=== PATIENT | male | born 1995 | race Caucasian/White ===

== ENCOUNTER 2020-05-23 10:29 | Observation (INO) ==
[2020-05-23 11:03] VITALS: BMI 21.7
[2020-05-23] MEDS ORDERED: NS 1000 ML 1,000 ML IV ONE ×2 (11:05→12:48)
[2020-05-23] MEDS ORDERED: HumuLIN R SUBCUT ONE (11:07)
[2020-05-23] MEDS ORDERED: ZOFRAN INJ 4 MG VIAL IVP ONE (11:07)
[2020-05-23] MEDS ORDERED: HumuLIN R ONE ×2 (11:08→11:09)
[2020-05-23] MEDS ORDERED: NS 1000 ML 1,000 ML ONE ×2 (11:08→12:46)
[2020-05-23] MEDS ORDERED: ZOFRAN INJ 4 MG VIAL ONE (11:08)
[2020-05-23] MEDS ORDERED: HumuLIN R IV ONE (11:08)
[2020-05-23 11:16] LABS: BASOPHILS % (AUTO) 0.2 % (0.2-1.0); EOSINOPHILS # (AUTO) 0.1 x10^3/uL (0.0-0.2); HEMATOCRIT 49.6 % (42.0-54.0); HEMOGLOBIN 16.4 g/dL (13.5-18.0); LYMPHOCYTES # (AUTO) 0.4 X10^3/uL (1.3-2.9); MEAN CORPUSCULAR HEMOGLOBIN 31.4 pg (27.0-34.0); MEAN CORPUSCULAR VOLUME 95.1 fL (80.0-100.0); MONOCYTES % (AUTO) 6.7 % (0.0-13.0); NEUTROPHILS # (AUTO) 12.8 x10^3/uL (2.2-4.8); NEUTROPHILS % (AUTO) 89.1 % (42.0-75.0); PLATELET COUNT 363 X10^3/uL (150.0-450.0); RED BLOOD COUNT 5.22 X10^6/uL (4.7-6.0); RED CELL DISTRIBUTION WIDTH 13.2 % (11.6-16.5); WHITE BLOOD COUNT 14.4 X10^3/uL (3.6-10.0)
[2020-05-23 11:24] LABS: ALANINE AMINOTRANSFERASE 112 Units/L (12-78); ALBUMIN 3.6 g/dL (3.4-5.0); ALKALINE PHOSPHATASE 120 Units/L (46-116); ASPARTATE AMINO TRANSFERASE 34 Units/L (15-37); BLOOD UREA NITROGEN 18 mg/dL (7-18); CALCIUM 8.4 mg/dL (8.5-10.1); CARBON DIOXIDE 17.3 mmol/L (21-32); CHLORIDE 99 mmol/L (98-107); COR NA(FOR HYPERGLY) 145 mmol/L (136-145); SERUM ACETONE SMALL (NEGATIVE); SODIUM 138 mmol/L (136-145); TOTAL PROTEIN 7.3 g/dL (6.4-8.2); eGFR NON BLACK RACES > 60 (>60)
[2020-05-23 12:22] LABS: BILIRUBIN,URINE NEGATIVE (NEGATIVE); BLOOD/HEMOGLOBIN,URINE NEGATIVE (NEGATIVE); GLUCOSE, URINE 4+ (NEGATIVE); KETONES,URINE 4+ (NEGATIVE); LEUKOCYTE ESTERASE ,URINE NEGATIVE (NEGATIVE); NITRITES,URINE NEGATIVE (NEGATIVE); PROTEIN,URINE NEGATIVE (NEGATIVE); UROBILINOGEN,URINE NORMAL (NORMAL)
[2020-05-23 12:26] LABS: APPEARANCE,URINE CLEAR (CLEAR); COLOR,URINE YELLOW (YELLOW)
--- NOTE | 2020-05-23 13:01 | RAD ---
HISTORYNausea and vomitingSTUDYAP chest portableCOMPARISONNoneFINDINGSNormal appearance of heart, lungs, mediastinum and pleural spaces.IMPRESSIONNormal AP chest.Electronically signed by: MARGOT TEJEDA (May 23, 2020 12:59:08)
--- NOTE | 2020-05-23 13:04 | DR.HYPOGLY ---
HPI Time Seen Time Seen by Provider: 05/23/20 12:41 PCP Primary Care Physician: PCP [place] HPI Comment HPI Comment: According to pt he was was well before 6 days. started with cold like symptoms with body ache decreased appetite .has been checking his blood sugar .running mostly in lower 200.however this morning experienced blood sugar over 300 and increased urination .did give himself additional insulin did not help ,hence the visit .Hx of DM type1 since age 11 at least Complaint Chief Complaint Doctors Comments: elevated blood sugar Chief Complaint:: PT C/O NAUSEA AND VOMITING SINCE 4AM ASSOCIATED WITH GENERALIZED MILD ABDOMINAL PAIN. PT IS TYPE 1 DIABETIC AND STATES THAT HIS BLOOD SUGAR WAS 530 AND HE TOOK 50 UNITS OF NOVOLOG JUST PRIOR TO ARRIVAL. COVID-19 Coronavirus risk:travel/contact w/high risk person: No Has patient experienced Coronavirus symptoms: No Nurses notes reviewed Nurses Notes Review: Yes Source History Provided: Patient Mode of Arrival Mode of Arrival: Ambulatory Timing Onset of Chief Complaint: 05/23/20 Came on: Gradually Duration Duration: Since Onset How lon Duration: Days Severity Blood sugar (if known): 300 Context Symptoms: Poor appetite History of: Insulin use Associated signs and symptoms Associated signs and symptoms: Nausea PMH PMH Past Medical History: Yes Past Medical History: Diabetes Past Surgical History: No Family History History of Family Medical Conditions: Yes Family Medical History: Diabetes Mellitus Social History Does patient currently use any type of tobacco product: No Have you used tobacco products in the last 12 months: No Type of Tobacco Use: None Does any household member use tobacco: No Alcohol Use: None Do you use any recreational Drugs:: No Lives With: Family Lives Where: Home Travel Risk Coronavirus risk:travel/contact w/high risk person: No Has patient experienced Coronavirus symptoms: No Infectious screening In the last 2 months have you had wt loss of >10#?: NO Have you had fever, night sweats or hemotysis?: No Have you traveled outside the country in the last 6 months?: No Isolation: Standard ROS Review of Systems Constitutional: No Symptoms Reported and Weakness Eyes: No Symptoms Reported ENTM: No Symptoms Reported Respiratoy: Dry Cough Cardiovascular: No Symptoms Reported and Palpitations Gastrointestinal/Abdominal: Nausea and Vomiting Genitourinary: Frequency Neurological: No Symptoms Reported and Weakness Musculoskeletal: No Symptoms Reported Integumentary: No Symptoms Reported Hematologic/Lymphatic: No Symptoms Reported Endocrine: Increased Thirst Psychiatric: No Symptoms Reported PE Vital Signs Vitals: Temperature 98.1 F Pulse Rate 114 Respiratory Rate 18 Blood Pressure 101/58 O2 Sat by Pulse Oximetry 97 General Limitations: No Limitations General Appearance: Alert Eyes Eye exam: Normal Appearance, PERRL and EOMI ENT ENT Exam: Mucous Membranes Dry Mouth Exam: Normal Inspection Neck Neck Exam: Normal Inspection and Full ROM Chest Chest Inspection: Normal Inspection and Symmetric Chest Wall Rise Respiratory Respiratory Exam: Bilateral: Crackles (intermittent) Cardiovascular Cardiovascular Exam: Regular Rate, Tachycardia, +S1 and +S2 Abdominal Exam Abdominal Exam: Normal Inspection, Normal Bowel Sounds and Soft Extremities Extremities Exam: Normal Inspection and Full ROM Neurologic Neurological Exam: Alert and Oriented X3 Skin Skin Exam: Warm MDM Additional information Findings: hyperglycemia ,polyuria and polydipsia,dehydration,DKA,Hx of DM type1 uncon COURSE Treatment Treatment: cbc,cmp,A1c,cxr,urinalysis,ser acetone,IV fluids ROR Labs Reviewed Laboratory Results Reviewed?: Yes Result Diagrams: 05/23/20 11:00 05/23/20 11:00 Laboratory: WBC 14.4 X10^3/uL (3.6-10.0) H 05/23/20 11:00 RBC 5.22 X10^6/uL (4.7-6.0) 05/23/20 11:00 Hgb 16.4 g/dL (13.5-18.0) 05/23/20 11:00 Hct 49.6 % (42.0-54.0) 05/23/20 11:00 MCV 95.1 fL (80.0-100.0) 05/23/20 11:00 MCH 31.4 pg (27.0-34.0) 05/23/20 11:00 MCHC 33.0 g/dL (33.0-35.0) 05/23/20 11:00 RDW 13.2 % (11.6-16.5) 05/23/20 11:00 Plt Count 363 X10^3/uL (150.0-450.0) 05/23/20 11:00 MPV 8.0 fL (7.4-11.0) 05/23/20 11:00 Neut % (Auto) 89.1 % (42.0-75.0) H 05/23/20 11:00 Lymph % (Auto) 3.0 % (21.0-51.0) L 05/23/20 11:00 [place] % (Auto) 6.7 % (0.0-13.0) 05/23/20 11:00 Eos % (Auto) 1.0 % (0.9-2.9) 05/23/20 11:00 Baso % (Auto) 0.2 % (0.2-1.0) 05/23/20 11:00 Neut # (Auto) 12.8 x10^3/uL (2.2-4.8) H 05/23/20 11:00 Lymph # (Auto) 0.4 X10^3/uL (1.3-2.9) L 05/23/20 11:00 [place] # (Auto) 1.0 x10^3/uL (0.3-0.8) H 05/23/20 11:00 Eos # (Auto) 0.1 x10^3/uL (0.0-0.2) 05/23/20 11:00 Baso # (Auto) 0.0 X10^3/uL (0.0-0.1) 05/23/20 11:00 Absolute Nucleated RBC 0.0 /100WBC 05/23/20 11:00 Sodium 138 mmol/L (136-145) 05/23/20 11:00 Corrected Sodium 145 mmol/L (136-145) 05/23/20 11:00 Potassium 3.9 mmol/L (3.5-5.1) 05/23/20 11:00 Chloride 99 mmol/L (98-107) 05/23/20 11:00 Carbon Dioxide 17.3 mmol/L (21-32) L 05/23/20 11:00 BUN 18 mg/dL (7-18) 05/23/20 11:00 Creatinine 1.30 mg/dL (0.70-1.30) 05/23/20 11:00 Est GFR (MDRD) Af Amer > 60 (>60) 05/23/20 11:00 Est GFR (MDRD) Non-Af > 60 (>60) 05/23/20 11:00 Glucose 396 mg/dL (65-99) H 05/23/20 11:00 POC Glucose (mg/dL) 188 mg/dL (65-99) H 05/23/20 12:06 Calcium 8.4 mg/dL (8.5-10.1) L 05/23/20 11:00 Corrected Calcium TNP 05/23/20 11:00 Total Bilirubin 1.10 mg/dL (0.2-1.0) H 05/23/20 11:00 AST 34 Units/L (15-37) 05/23/20 11:00 ALT 112 Units/L (12-78) H 05/23/20 11:00 Alkaline Phosphatase 120 Units/L (46-116) H 05/23/20 11:00 Total Protein 7.3 g/dL (6.4-8.2) 05/23/20 11:00 Albumin 3.6 g/dL (3.4-5.0) 05/23/20 11:00 Globulin 3.7 g/dL (2.5-4.5) 05/23/20 11:00 Albumin/Globulin Ratio 1.0 Ratio (1.1-2.1) L 05/23/20 11:00 Specimen Type Clean catch urine 05/23/20 12:08 Urine Color Yellow (YELLOW) 05/23/20 12:08 Urine Appearance Clear (CLEAR) 05/23/20 12:08 Urine pH 5.0 (5.0 - 8.0) 05/23/20 12:08 Ur Specific [place] 1.020 (1.000-1.030) 05/23/20 12:08 Urine Protein Negative (NEGATIVE) 05/23/20 12:08 Urine Glucose (UA) 4+ (NEGATIVE) 05/23/20 12:08 Urine Ketones 4+ (NEGATIVE) 05/23/20 12:08 Urine Occult Blood Negative (NEGATIVE) 05/23/20 12:08 Urine Nitrite Negative (NEGATIVE) 05/23/20 12:08 Urine Bilirubin Negative (NEGATIVE) 05/23/20 12:08 Urine Urobilinogen Normal (NORMAL) 05/23/20 12:08 Ur Leukocyte Esterase Negative (NEGATIVE) 05/23/20 12:08 Acetone, Semi-Quant Small (NEGATIVE) H 05/23/20 11:00 XRAY X-ray Results: no acute changes Opioid Opioid Risk Tool Age (Issac box if 16-45): Yes History of Preadolescent Sexual Abuse: No Total: 1 Total Score Risk Category: Low Risk Copyright: German GARZA predicting aberrant behaviors Diagnosis Discharge Problem: Hyperglycemia, Acute dehydration Diabetic keto-acidosis Qualifiers: Diabetes mellitus type: type 1 Diabetes mellitus complication detail: without coma Qualified Code(s): E10.10 - Type 1 diabetes mellitus with ketoacidosis without coma DM type 1 (diabetes mellitus, type 1) Qualifiers: Diabetes mellitus complication status: without complication Qualified Code(s): E10.9 - Type 1 diabetes mellitus without complications Instructions Forms: Precautions for COVID19 Patient Portal Social Distancing ADDITIONAL NOTES Additional Notes Additional Notes: discussed with Dr Garcia. agreed to admit for observation. Blood sugar below 190 currently
[2020-05-23] MEDS ORDERED: ZOFRAN INJ 4 MG VIAL IVP PRN (14:26)
[2020-05-23] MEDS: NS 1000 ML 1,000 ML IV SCH ×2 (15:15→21:55)
[2020-05-23] MEDS ORDERED: SNACK - Diabetic Appropriate PO SCH (20:00)
[2020-05-23] MEDS: HumuLIN R SUBCUT PRN (20:17)
[2020-05-23] MEDS ORDERED: LANTUS SC SCH (21:00)
[2020-05-24] MEDS: NS 1000 ML 1,000 ML IV SCH (05:25)
[2020-05-24] MEDS: HumuLIN R SUBCUT PRN (06:43)
[2020-05-24 09:31] LABS: ALANINE AMINOTRANSFERASE 69 Units/L (12-78); ALBUMIN 2.4 g/dL (3.4-5.0); ALKALINE PHOSPHATASE 94 Units/L (46-116); ASPARTATE AMINO TRANSFERASE 23 Units/L (15-37); BLOOD UREA NITROGEN 17 mg/dL (7-18); CALCIUM 7.4 mg/dL (8.5-10.1); CARBON DIOXIDE 18.2 mmol/L (21-32); CHLORIDE 101 mmol/L (98-107); COR CA(FOR HYPOALB) 8.7 mg/dL (8.5-10.1); COR NA(FOR HYPERGLY) 144 mmol/L (136-145); CREATININE 0.96 mg/dL (0.70-1.30); MAGNESIUM 1.8 mg/dL (1.7-2.9); SODIUM 135 mmol/L (136-145); TOTAL PROTEIN 5.4 g/dL (6.4-8.2); eGFR NON BLACK RACES > 60 (>60)
[2020-05-24] MEDS ORDERED: NS 500 ML IV 500 ML IV ONE ×3 (09:32→10:15)
[2020-05-24] MEDS ORDERED: LANTUS SC ONE ×2 (09:32→09:40)
[2020-05-24 09:52] LABS: BASOPHILS % (AUTO) 0.4 % (0.2-1.0); EOSINOPHILS # (AUTO) 0.1 x10^3/uL (0.0-0.2); EOSINOPHILS % (AUTO) 1.4 % (0.9-2.9); HEMATOCRIT 40.3 % (42.0-54.0); HEMOGLOBIN 13.9 g/dL (13.5-18.0); LYMPHOCYTES # (AUTO) 1.2 X10^3/uL (1.3-2.9); LYMPHOCYTES % (AUTO) 19.4 % (21.0-51.0); MEAN CORPUSCULAR HEMOGLOBIN 32.1 pg (27.0-34.0); MEAN CORPUSCULAR HGB CONC 34.3 g/dL (33.0-35.0); MEAN CORPUSCULAR VOLUME 93.4 fL (80.0-100.0); MEAN PLATELET VOLUME 7.7 fL (7.4-11.0); MONOCYTES # (AUTO) 0.5 x10^3/uL (0.3-0.8); MONOCYTES % (AUTO) 8.1 % (0.0-13.0); NEUTROPHILS # (AUTO) 4.3 x10^3/uL (2.2-4.8); NEUTROPHILS % (AUTO) 70.7 % (42.0-75.0); PLATELET COUNT 284 X10^3/uL (150.0-450.0); RED BLOOD COUNT 4.32 X10^6/uL (4.7-6.0); RED CELL DISTRIBUTION WIDTH 13.5 % (11.6-16.5)
[2020-05-24 12:08] VITALS: BP 120/64
[2020-05-24 13:15] LABS: BLOOD UREA NITROGEN 12 mg/dL (7-18); CALCIUM 7.5 mg/dL (8.5-10.1); CARBON DIOXIDE 28.2 mmol/L (21-32); CHLORIDE 105 mmol/L (98-107); COR NA(FOR HYPERGLY) 143 mmol/L (136-145); CREATININE 0.87 mg/dL (0.70-1.30); SODIUM 141 mmol/L (136-145); eGFR NON BLACK RACES > 60 (>60)
[2020-05-24] MEDS ORDERED: SNACK - Diabetic Appropriate PO SCH (20:00)
--- NOTE | 2020-05-25 10:02 | DR.SSS ---
SHORT STAY SUMMARY Admission Date Date of Admission: 05/23/20 Discharge Date Discharge Date: 05/24/20 Admission Diagnoses Admission Diagnoses: Diabetic ketoacidosis Hyperglycemia Dehydration Discharge Diagnoses Discharge Diagnoses: Diabetic ketoacidosis Hyperglycemia Dehydration Metabolic acidosis Type 1 Diabetes mellitus Chief Complaint Chief Complaint: weakness, body aches History of Present Illness History of Present Illness: Mr. Hodge is a 25 y/o male with a PMH of Type 1 DM on insulin presented with generalized weakness, body aches and poor appetite. He states normally his FSBG run in the low 100s but last few days they have been elevated in the 200s and morning prior to coming to the ER, it was in the 500s. He did give himself extra insulin prior to coming in. He takes Lantus 64 units qPM and novolog with meals. In the ED, his glucose was 471. He was started on IV hydration which improved his glucose. UA was negative for infection except did show acetone. CXR and COVID swab were negative. He was not started on IV insulin as his FSBG had already dropped to below 200 and was started on SSI. Patient was able to tolerate oral intake. His lantus was resumed and patient's labs had normalized. He was stable for discharge. He has an endocrine follow up later this month. Past Medical History Past Medical History: Diabetes Allergies Allergies Allergy/AdvReac Type Severity Reaction Status Date / Time No Known Drug Allergies Allergy Verified 05/23/20 11:06 Medications Home Medications: No Known Drug Allergies Allergy (Verified 05/23/20 11:06) CONTINUE taking the following medications insulin aspart U-100 20 unit SUBCUT TID PRN 05/24/20 [History] insulin glargine [Lantus Solostar U-100 Insulin] 63 unit SUBCUT QAM 05/24/20 [History] Family History Family Medical History: Diabetes Mellitus and Hypertension Social History Does patient currently use any type of tobacco product: Yes Have you used tobacco products in the last 12 months: Yes Type of Tobacco Use: Smokeless Does any household member use tobacco: No Alcohol Use: None Drug Use: None Review of Systems Constitutional: Weakness Eyes: No Symptoms Reported ENT: No Symptoms Reported Respiratory: No Symptoms Reported Cardiovascular: No Symptoms Reported Gastrointestinal: No Symptoms Reported Genitourinary: Frequency Musculoskeletal: No Symptoms Reported Skin: No Symptoms Reported Neurological: No Symptoms Reported Physical Exam Vital Signs: Last Vital Signs Temp 98.1 F 05/24/20 12:00 Pulse 93 H 05/24/20 12:00 Resp 20 05/24/20 12:00 BP 120/64 05/24/20 12:00 Pulse Ox 96 05/24/20 12:00 Oriented: Normal Eyes: Normal Ear: Normal Nose: Normal Throat: Normal Respiratory: Clear Throughout Cardiovascular: Normal Auscultation: Bowel Sounds: Normal Palpation: Normal Tenderness: Normal Skin: Normal Musculoskeletal: Normal Psychiatric: Normal Mood Description: Calm Affect: Normal Speech Pattern: Clear and Appropriate Labs Labs: Laboratory Last Values WBC 6.0 X10^3/uL (3.6-10.0) D 05/24/20 09:28 RBC 4.32 X10^6/uL (4.7-6.0) L 05/24/20 09:28 Hgb 13.9 g/dL (13.5-18.0) D 05/24/20 09:28 Hct 40.3 % (42.0-54.0) L 05/24/20 09:28 MCV 93.4 fL (80.0-100.0) 05/24/20 09:28 MCH 32.1 pg (27.0-34.0) 05/24/20 09:28 MCHC 34.3 g/dL (33.0-35.0) 05/24/20 09:28 RDW 13.5 % (11.6-16.5) 05/24/20 09:28 Plt Count 284 X10^3/uL (150.0-450.0) 05/24/20 09:28 MPV 7.7 fL (7.4-11.0) 05/24/20 09:28 Neut % (Auto) 70.7 % (42.0-75.0) 05/24/20 09:28 Lymph % (Auto) 19.4 % (21.0-51.0) L 05/24/20 09:28 [place] % (Auto) 8.1 % (0.0-13.0) 05/24/20 09:28 Eos % (Auto) 1.4 % (0.9-2.9) 05/24/20 09:28 Baso % (Auto) 0.4 % (0.2-1.0) 05/24/20 09:28 Neut # (Auto) 4.3 x10^3/uL (2.2-4.8) 05/24/20 09:28 Lymph # (Auto) 1.2 X10^3/uL (1.3-2.9) L 05/24/20 09:28 [place] # (Auto) 0.5 x10^3/uL (0.3-0.8) 05/24/20 09:28 Eos # (Auto) 0.1 x10^3/uL (0.0-0.2) 05/24/20 09:28 Baso # (Auto) 0.0 X10^3/uL (0.0-0.1) 05/24/20 09:28 Absolute Nucleated RBC 0.1 /100WBC 05/24/20 09:28 Sodium 141 mmol/L (136-145) 05/24/20 12:32 Corrected Sodium 143 mmol/L (136-145) 05/24/20 12:32 Potassium 3.7 mmol/L (3.5-5.1) 05/24/20 12:32 Chloride 105 mmol/L (98-107) 05/24/20 12:32 Carbon Dioxide 28.2 mmol/L (21-32) 05/24/20 12:32 BUN 12 mg/dL (7-18) 05/24/20 12:32 Creatinine 0.87 mg/dL (0.70-1.30) 05/24/20 12:32 Est GFR (MDRD) Af Amer > 60 (>60) 05/24/20 12:32 Est GFR (MDRD) Non-Af > 60 (>60) 05/24/20 12:32 Glucose 203 mg/dL (65-99) H 05/24/20 12:32 POC Glucose (mg/dL) 192 mg/dL (65-99) H 05/24/20 11:33 Calcium 7.5 mg/dL (8.5-10.1) L 05/24/20 12:32 Corrected Calcium 8.7 mg/dL (8.5-10.1) 05/24/20 06:10 Magnesium 1.8 mg/dL (1.7-2.9) 05/24/20 06:10 Total Bilirubin 0.70 mg/dL (0.2-1.0) 05/24/20 06:10 AST 23 Units/L (15-37) 05/24/20 06:10 ALT 69 Units/L (12-78) 05/24/20 06:10 Alkaline Phosphatase 94 Units/L (46-116) 05/24/20 06:10 Total Protein 5.4 g/dL (6.4-8.2) L 05/24/20 06:10 Albumin 2.4 g/dL (3.4-5.0) L 05/24/20 06:10 Globulin 3.0 g/dL (2.5-4.5) 05/24/20 06:10 Albumin/Globulin Ratio 0.8 Ratio (1.1-2.1) L 05/24/20 06:10 Specimen Type Clean catch urine 05/23/20 12:08 Urine Color Yellow (YELLOW) 05/23/20 12:08 Urine Appearance Clear (CLEAR) 05/23/20 12:08 Urine pH 5.0 (5.0 - 8.0) 05/23/20 12:08 Ur Specific [place] 1.020 (1.000-1.030) 05/23/20 12:08 Urine Protein Negative (NEGATIVE) 05/23/20 12:08 Urine Glucose (UA) 4+ (NEGATIVE) 05/23/20 12:08 Urine Ketones 4+ (NEGATIVE) 05/23/20 12:08 Urine Occult Blood Negative (NEGATIVE) 05/23/20 12:08 Urine Nitrite Negative (NEGATIVE) 05/23/20 12:08 Urine Bilirubin Negative (NEGATIVE) 05/23/20 12:08 Urine Urobilinogen Normal (NORMAL) 05/23/20 12:08 Ur Leukocyte Esterase Negative (NEGATIVE) 05/23/20 12:08 Acetone, Semi-Quant Small (NEGATIVE) H 05/23/20 11:00 SARS CoV-2 RNA Rapid KINJAL Negative (NEGATIVE) 05/23/20 13:11 Assessment/Plan (1) Hyperglycemia: (2) Diabetic keto-acidosis: (3) Acute dehydration: (4) DM type 1 (diabetes mellitus, type 1): Hospital Course Hospital Course: Patient was admitted for DKA 2/2 to Type 1 DM. He received aggressive hydration with normal saline which improved the hyperglycemia. Patient's labs were monitored daily. He was started back on Lantus and novolog. He was able to tolerate PO diet. Patient's metabolic acidosis resolved and he was stable for discharge. He has an endocrine follow up later this month. Discharge Medications Discharge Medications: Home Medication List insulin aspart U-100 20 unit SUBCUT TID PRN 05/24/20 [History] insulin glargine [Lantus Solostar U-100 Insulin] 63 unit SUBCUT QAM 05/24/20 [History] Prescriptions: Discharge Disposition Discharge Disposition: Home.
== END 2020-05-24 13:50 | disposition home or self-care (01) ==
LOC: MED/SURG 10:49 → ER 10:49 → UNDODISOB 14:00 → MED/SURG 14:21
PROVIDERS: ADMIT Family Medicine; ATTEND Family Medicine
DX: R94.31 Abnormal electrocardiogram [ECG] [EKG]; E86.0 Dehydration; R10.84 Generalized abdominal pain; Z20.822 Contact with and (suspected) exposure to COVID-19; E10.10 Type 1 diabetes mellitus with ketoacidosis without coma; Z79.4 Long term (current) use of insulin